=== PATIENT | female | born 1995 | race Caucasian/White ===

== ENCOUNTER 2018-07-07 13:28 | Emergency (ER) | payer OTHER ==
[2018-07-07 14:01] VITALS: BP 127/84
--- NOTE | 2018-07-07 14:44 | UC ---
Complaint Female HPI - HPI Summary HPI Summary: 22 yo female presents with urinary urgency and painful burning for the last 3 days. She has had a UTI in the past and this feels similar. Denies abdominal pain, n/v, flank pain, or vaginal discharge/bleeding. - History Of Current Complaint Chief Complaint: UCGU Stated Complaint: URINARY ISSUE Time Seen by Provider: 07/07/18 14:44 Hx Obtained From: Patient Hx Last Menstrual Period: 06/10/19 Onset/Duration: Gradual Onset Severity Initially: Mild Severity Currently: Mild Pain Intensity: 4 Pain Scale Used: 0-10 Numeric - Allergies/Home Medications Allergies/Adverse Reactions: Allergies Allergy/AdvReac Type Severity Reaction Status Date / Time No Known Allergies Allergy Verified 07/07/18 14:01 Home Medications: Home Medications Pnv No.95/Ferrous Fum/Folic AC [ and Iron] 1 tab PO DAILY 07/07/18 [ History Confirmed 07/07/18] PMH/Surg Hx/FS Hx/Imm Hx - Additional Past Medical History Additional PMH: None - Surgical History Surgical History: None - Social History Alcohol Use: Occasionally Substance Use Type: None Smoking Status (MU): Never Smoked Tobacco Review of Systems All Other Systems Reviewed And Are Negative: Yes Constitutional: Positive: Negative Skin: Positive: Negative Respiratory: Positive: Negative Cardiovascular: Positive: Negative Gastrointestinal: Positive: Negative Genitourinary: Positive: Dysuria, Frequency, Urgency Neurovascular: Positive: Negative Neurological: Positive: Negative Psychological: Positive: Negative Physical Exam - Summary Physical Exam Summary: GENERAL: NAD. WDWN. No pain distress. SKIN: No rashes, sores, lesions, or open wounds. NECK: Supple. Nontender. No lymphadenopathy. CHEST: CTAB. No r/r/w. No accessory muscle use. Breathing comfortably and in no distress. CV: RRR. Without m/r/g. Pulses intact. Cap refill <2seconds ABDOMEN: Soft. NTTP. No distention or guarding. No CVA tenderness. Bowel sounds present NEURO: Alert. PSYCH: Age appropriate behavior. Triage Information Reviewed: Yes Vital Signs: Initial Vital Signs Temp 99.2 F 07/07/18 13:58 Pulse 84 07/07/18 13:58 Resp 18 07/07/18 13:58 BP 127/84 07/07/18 13:58 Pulse Ox 100 07/07/18 13:58 Laboratory Tests 07/07/18 14:52 POC Urine Color Yellow POC Urine Clarity Cloudy POC Urine pH 7.0 POC Ur Specif [place] 1.010 POC Urine Protein Negative POC Ur Glucose (UA) Negative POC Urine Ketones Negative POC Urine Blood Negative POC Urine Nitrite Negative POC Urine Bilirubin Negative POC Urine Urobilinogen 0.2 POC U Leukocyte Esteras Trace A Vital Signs Reviewed: Yes Complaint Female Dx - Course Course Of Treatment: UA with sign of infection. Rx for macrobid. - Differential Dx/Diagnosis Provider Diagnosis: UTI (urinary tract infection) Discharge - Sign-Out/Discharge Documenting (check all that apply): Patient Departure All imaging exams completed and their final reports reviewed: No Studies - Discharge Plan Condition: Stable Disposition: HOME Prescriptions: Nitrofurantoin Monohyd/M-Cryst [Macrobid 100 mg Capsule] 100 mg PO BID #10 cap Patient Education Materials: Urinary Tract Infection in Women (ED) Referrals: No Primary Care Phys,NOPCP [Primary Care Provider] - Additional Instructions: If you develop a fever, shortness of breath, chest pain, new or worsening symptoms - please call your PCP or go to the ED. - Billing Disposition and Condition Condition: STABLE Disposition: Home
--- NOTE | 2018-07-08 17:00 | UC ---
- Progress Note Progress Note: 07/08/2018 Urine culture positive for E.Coli. Pt Rx Nitrofurantoin PO which cover it, Final sensitivity report still pending. No change Elba Avila PA-C Course/Dx - Diagnoses Provider Diagnoses: UTI (urinary tract infection) Discharge - Sign-Out/Discharge Documenting (check all that apply): Patient Departure - D/C home All imaging exams completed and their final reports reviewed: No Studies - Discharge Plan Condition: Stable Disposition: HOME Prescriptions: Nitrofurantoin Monohyd/M-Cryst [Macrobid 100 mg Capsule] 100 mg PO BID #10 cap Patient Education Materials: Urinary Tract Infection in Women (ED) Referrals: No Primary Care Phys,NOPCP [Primary Care Provider] - Additional Instructions: If you develop a fever, shortness of breath, chest pain, new or worsening symptoms - please call your PCP or go to the ED. - Billing Disposition and Condition Condition: STABLE Disposition: Home
== END 2018-07-07 15:10 | disposition home or self-care (01) ==
LOC: UCEAST 13:28
DX: N39.0 Urinary tract infection, site not specified (principal); B96.20 Unspecified Escherichia coli [E. coli] as the cause of diseases classified elsewhere; Z87.440 Personal history of urinary (tract) infections
CPT/HCPCS: 81003; 87077; 87086; 87186; 99212; G0463

== ENCOUNTER 2019-03-17 13:16 | Inpatient (IN) | payer OTHER ==
[2019-03-17] MEDS ORDERED: Buffered Lidocaine 1% SYRIN* 1 ML/SYRINGE INTRADERM ONE (14:29)
[2019-03-17] MEDS ORDERED: Lactated Ringers 1000 ML Bag* 1,000 ML IV ONE (14:29)
[2019-03-17] MEDS ORDERED: Penicillin G Potassium IV* 5,000,000 UNITS in NS 0.9% 100 ML* 100 ML IVPB ONE (15:00)
[2019-03-17] MEDS ORDERED: Lactated Ringers 1000 ML Bag* 1,000 ML IV SCH ×2 (15:00→19:00)
[2019-03-17 15:26] LABS: ABS Basophils 0.1 10^3/ul (0-0.2); ABS Eosinophils 0.1 10^3/ul (0-0.6); ABS Lymphocytes 2.1 10^3/ul (1.0-4.8); ABS Monocytes 0.7 10^3/ul (0-0.8); ABS Neutrophils 11.7 10^3/ul (1.5-7.7); Eosinophil % 0.7 %; Hematocrit 40 % (35-47); Hemoglobin 13.5 g/dL (12.0-16.0); Lymphocyte % 14.1 %; Mean Corpuscular HGB Conc 34 g/dL (31-36); Mean Corpuscular Hemoglobin 31 pg (27-31); Mean Corpuscular Volume 90 fL (80-97); Mean Platelet Volume 8.1 fL (7.4-10.4); Platelet Count 250 10^3/uL (150-450); Red Cell Distribution Width 13 % (10-15); White Blood Count 14.6 10^3/uL (3.5-10.8)
[2019-03-17 17:12] LABS: Urine Benzodiazepine Screen None Detected (None Detect); Urine Opiates Screen None Detected (None Detect)
[2019-03-17] MEDS ORDERED: Oxytocin in LR* 20 UNITS/1,000 ML BAG IVPB ONE (17:18)
[2019-03-17] MEDS ORDERED: Dibucaine 1% 28.35 GM TUBE PR PRN (18:39)
[2019-03-17] MEDS ORDERED: Acetaminophen TAB* 325 MG PO PRN (18:39)
[2019-03-17] MEDS ORDERED: Witch Hazel PAD* JAR TOPICAL PRN (18:39)
[2019-03-17] MEDS ORDERED: Glycerin ADULT SUPP PR PRN (18:39)
[2019-03-17] MEDS ORDERED: Oxytocin in LR* 20 UNITS/1,000 ML BAG IVPB SCH (19:00)
[2019-03-17] MEDS ORDERED: Penicillin G Potassium IV* 2,500,000 UNITS in NS 0.9% 100 ML* 100 ML IVPB SCH (19:30)
[2019-03-17] MEDS ORDERED: Lidocaine 1% INJ* 10 MG/ML 30 ML SDV ONE (20:17)
--- NOTE | 2019-03-17 20:28 | HP ---
General Information - Reason for Visit 23yo, , IUP@40 weeks, in active labor - General Information Maternal Age: 23 Grav: 1 Para: 0 SAB: 0 IEA: 0 Estimated Due Date: 03/17/19 Determined By: LMP Gestational Age in Weeks/Days: 40+0 Maternal Blood Type and Rh: O Positive - Results this Serology/RPR Result: Non-Reactive Rubella Result: Immune HBsAg Result: Negative HIV Result: Negative GBS Culture Result: Positive Past Medical History Pertinent Past Medical History: Non-Contributory Pertinent Past Surgical History: None Pertinent Family History: See Records Family History Comment: Brother: Bipolar MGM: d/t brain aneurysm MGF: Alzheimer's Disease - Antepartal Records Antepartal Records: Reviewed, Uncomplicated Review of Systems Constitutional: Uncomfortable CV Complaint: No Respiratory: Shortness of Breath: No Gastrointestinal: No Nausea/Vomiting Genitourinary: No Dysuria, No Bleeding, No Leaking Fluid Musculoskeletal: Contractions Neurological: No Headache Movement: Normal Exam Allergies/Adverse Reactions: Allergies No Known Allergies Allergy (Verified 07/07/18 14:01) Vital Signs 03/17/19 03/17/19 03/17/19 18:07 18:33 19:30 Temperature 97.7 F 97.6 F 98.1 F Pulse Rate 72 76 78 Respiratory 18 18 18 Rate Blood Pressure 111/87 115/85 127/65 (mmHg) Lab Values - Entire Visit: Laboratory Tests 03/17/19 03/17/19 03/17/19 13:25 15:10 15:10 WBC 14.6 H RBC 4.40 Hgb 13.5 Hct 40 MCV 90 MCH 31 MCHC 34 RDW 13 Plt Count 250 MPV 8.1 Neut % (Auto) 80.4 Lymph % (Auto) 14.1 Citrus % (Auto) 4.5 Eos % (Auto) 0.7 Baso % (Auto) 0.3 Absolute Neuts (auto) 11.7 H Absolute Lymphs (auto) 2.1 Absolute Monos (auto) 0.7 Absolute Eos (auto) 0.1 Absolute Basos (auto) 0.1 Absolute Nucleated RBC 0.0 Nucleated RBC % 0.0 Urine Opiates Screen None detected Ur Barbiturates Screen None detected Ur Phencyclidine Scrn None detected Ur Amphetamines Screen None detected U Benzodiazepines Scrn None detected Urine Cocaine Screen None detected U Cannabinoids Screen None detected Blood Type O Positive Antibody Screen Negative - Measurements Height: 5 ft 4 in Weight: 160 lb Weight in lbs: [id number] Body Mass Index (BMI): 27.4 Pre- Weight: 128 lb Weight Gained This : 32 lbs and 0 ozs - Exam Breast: Breast Exam Deferred CVA: No CVA Tenderness Extremities: No Edema Heart: Normal Rhythm/Heart Sounds HEENT: No Significant Findings Lungs: Clear Bilaterally Rectal: Rectal Exam Deferred Reflexes: DTR 2+ Targeted Exam Findings Estimated Weight: 7.5lbs Cervical Exam: 4cm Effacement: 90% Station: -1 Presenting Part: Vertex Membrane Status: Intact EFM Findings - External Monitor Findings Baseline Heart Rate: 140 External Monitor Findings: Accelerations Present, No Pattern of Variable or Late Decelerations, Variability Moderate, Baseline Stable External Monitor Findings Comment: No evidence of metabolic acidemia Contractions: Regular - 2-3 mins Assessment/Plan - Assessment 23yo, , IUP@40, here in active labor GBS positive, O+, RI Uncomplicated No evidence of metabolic acidemia Regular contractions Effectively using hyponobabies for pain control - Obstetrical Risk Factors Obstetrical Risk Factors: GBS Positive - Plan Plan: Admit - Anticipate Vaginal Delivery Plan Comment: Admit to labor and delivery Start GBS prophylaxis VE prn Anticipate progression to - Date/Time of Admission Date of Admission: 03/17/19 Time of Admission: 13:45
--- NOTE | 2019-03-17 20:52 | PROCNOTE ---
[facility] OB: Delivery Note - Delivery A Date of : 03/17/19 Time of : 17:29 [place] Sex: Female Weight at : 7 lb 4 oz Score 1 Minute: 9 Score 5 Minutes: 9 Gestational Age in Weeks and Days at Delivery: 40 Weeks and 0 Days Delivery Method: Spontaneous Vaginal Labor: Spontaneous Did Patient attempt ?: N/A, No Previous Amniotic Fluid: Clear Estimated Blood Loss: 300 Anesthesia/Analgesia: Nitrous-Labor Delivered By: Jesusita Lund Nursery Level of Nursery: Regular/Bedside - Perineum Perineal Injury: Perineal Laceration, Vaginal Laceration, 2nd Degree Perineal Injury Comment: 2nd degree perineal tear and vaginal tear Perineal Repair: By Delivering Practioner - Events Delivery Events of Note: Pitocin Only After Delivery, Partial Course of Antibiotics - Additional Delivery Notes Additional Delivery Notes: 23 yo G1, now P1 at 40+0 weeks admitted in active labor. Pt quickly progressed to complete. Pt began pushing spontaneously on hands and knees at 1655, with of liveborn female at 1729. OA to HENRY, shoulders followed easily. Infant handed to mother through legs, dried and stimulated with spontaneous cry. ' s 9 and 9. Delayed cord clamping, cord then cut by FOB. Spontaneous elisa delivery of intact placenta at 1740. Fundus firm with massage, Pitocin infusing. EBL 300 mL. After careful inspection a second degree perineal and vaginal laceration were identified and repaired in the usual fashion. Normal anatomy restored, hemostasis achieved. . Mother and infant in stable condition at time of note.
[2019-03-17] MEDS ORDERED: Simethicone TAB* 80 MG TAB.CHEW PO SCH (21:00)
[2019-03-17] MEDS: Ibuprofen TAB* 600 MG PO SCH (21:22)
[2019-03-17] MEDS: Docusate CAP* 100 MG PO SCH (21:22)
[2019-03-18] MEDS: Ibuprofen TAB* 600 MG PO SCH ×4 (05:08→19:39)
[2019-03-18 08:03] LABS: ABS Eosinophils 0.1 10^3/ul (0-0.6); ABS Lymphocytes 2.5 10^3/ul (1.0-4.8); ABS Monocytes 0.9 10^3/ul (0-0.8); ABS Neutrophils 9.7 10^3/ul (1.5-7.7); Eosinophil % 0.7 %; Hematocrit 33 % (35-47); Hemoglobin 10.9 g/dL (12.0-16.0); Lymphocyte % 19.2 %; Mean Corpuscular HGB Conc 34 g/dL (31-36); Mean Corpuscular Hemoglobin 31 pg (27-31); Mean Corpuscular Volume 91 fL (80-97); Platelet Count 235 10^3/uL (150-450); Red Blood Count 3.59 10^6 /uL (3.70-4.87); Red Cell Distribution Width 13 % (10-15); White Blood Count 13.2 10^3/uL (3.5-10.8)
--- NOTE | 2019-03-18 08:32 | PTEDU ---
Patient Name: CHICO DWYER CHICO DWYER selected video: BBOB: Nurturing Your Gorgeous &Growing Baby by to view on 03/18/2019 at 8:29:43 AM from [id number]
[2019-03-18] MEDS ORDERED: Ferrous Gluconate TAB* 324 MG TAB PO SCH (09:00)
[2019-03-18] MEDS: Docusate CAP* 100 MG PO SCH ×3 (09:30→21:07)
[2019-03-18] MEDS ORDERED: Influenza VAC *QUAD* 2019-20* 0.5 ML SYRINGE IM ONE (11:00)
[2019-03-19] MEDS: Ibuprofen TAB* 600 MG PO SCH ×2 (00:38→08:55)
[2019-03-19 07:59] VITALS: BP 108/68
[2019-03-19] MEDS: Docusate CAP* 100 MG PO SCH ×2 (08:55→13:41)
== END 2019-03-19 18:00 | disposition home or self-care (01) | DRG 807 ==
LOC: MCHOBOUT 13:16 → MCHOB 13:45
PROVIDERS: ADMIT Advanced Practice Midwife; ATTEND Advanced Practice Midwife
PROC: 10E0XZZ Delivery of Products of Conception, External Approach (ICD-10-PCS; principal; 2019-03-17)
PROC: 0KQM0ZZ Repair Perineum Muscle, Open Approach (ICD-10-PCS; 2019-03-17)
DX: O99.824 Streptococcus B carrier state complicating childbirth (principal); Z37.0 Single live birth; O71.4 Obstetric high vaginal laceration alone; Z3A.40 40 weeks gestation of pregnancy
CPT/HCPCS: 36415; 80307; 85025; 86850; 86900; 86901; 90686; A9270-GY; J2540

== ENCOUNTER 2020-10-20 13:45 | Inpatient (IN) ==
[2020-10-20] MEDS ORDERED: Buffered Lidocaine 1% SYRIN 1 ml INTRADERM ONE (15:54)
[2020-10-20] MEDS ORDERED: Lactated Ringers 1000 ml BAG 1,000 ML IV ONE (15:54)
[2020-10-20] MEDS ORDERED: Lactated Ringers 1000 ml BAG 1,000 ML IV SCH (16:00)
[2020-10-20 17:24] LABS: Urine Benzodiazepine Screen None Detected (None Detect); Urine Cannabinoids Screen None Detected (None Detect); Urine Opiates Screen None Detected (None Detect)
[2020-10-21] MEDS ORDERED: Witch Hazel PAD JAR ONE (04:01)
[2020-10-21] MEDS ORDERED: Dibucaine 1% OINT 28.35 GM TUBE ONE (04:01)
[2020-10-21] MEDS ORDERED: Oxytocin 10 UNITS/ML 1 ML VIAL ONE (05:11)
[2020-10-21] MEDS ORDERED: Glycerin ADULT 2.4 gm SUPP PR PRN (05:16)
[2020-10-21] MEDS ORDERED: Witch Hazel PAD JAR TOPICAL PRN (05:16)
[2020-10-21] MEDS ORDERED: Dibucaine 1% OINT 28.35 GM TUBE PR PRN (05:16)
[2020-10-21] MEDS ORDERED: Lactated Ringers 1000 ml BAG 1,000 ML IV SCH (06:00)
[2020-10-22 07:27] VITALS: BP 101/58
[2020-10-22 09:30] LABS: ABS Basophils 0.1 10^3/ul (0-0.2); ABS Eosinophils 0.5 10^3/ul (0-0.6); ABS Lymphocytes 4.7 10^3/ul (1.0-4.8); ABS Monocytes 0.7 10^3/ul (0-0.8); ABS Neutrophils 10.4 10^3/ul (1.5-7.7); Eosinophil % 3.3 %; Hematocrit 35 % (35-47); Hemoglobin 11.7 g/dL (12.0-16.0); Lymphocyte % 28.8 %; Mean Corpuscular HGB Conc 34 g/dL (31-36); Mean Corpuscular Hemoglobin 31 pg (27-31); Mean Corpuscular Volume 91 fL (80-97); Mean Platelet Volume 7.7 fL (7.4-10.4); Nucleated Red Blood Cells % 0.1; Platelet Count 337 10^3/uL (150-450); Red Blood Count 3.81 10^6 /uL (3.70-4.87); Red Cell Distribution Width 13 % (10-15); White Blood Count 16.4 10^3/uL (3.5-10.8)
== END 2020-10-22 11:30 | disposition home or self-care (01) ==
LOC: MCHOBOUT 13:45 → MCHOB 15:50
PROVIDERS: ADMIT Midwife; ATTEND Midwife